=== PATIENT | male | born 1975 | race Caucasian/White ===

== ENCOUNTER 2016-11-09 14:02 | Emergency (ER) | payer OTHER ==
[~2016-11-09] VITALS: Ht 185.4 cm; Wt 97.7 kg
[2016-11-09 14:10] VITALS: BP 145/99; PULSE 74; TEMP 99.1
[2016-11-09] MEDS ORDERED: LEVAQUIN 5500 MG/TA1 PO (16:11)
[2016-11-09] MEDS ORDERED: TESSALON P100 MG/CAP PO (16:16)
== END 2016-11-09 16:23 | disposition home or self-care (01) ==
LOC: COL.ER 14:02
DX: J40 Bronchitis, not specified as acute or chronic (principal); I10 Essential (primary) hypertension; F17.210 Nicotine dependence, cigarettes, uncomplicated; Z21 Asymptomatic human immunodeficiency virus [HIV] infection status